=== PATIENT | male | born 1960 | race Two or more races ===

== ENCOUNTER → 2023-10-19 | Outpatient (CLI) | payer OTHER | END | disposition home or self-care (01) | LOC: LABPAT 15:06 | PROVIDERS: ATTEND Orthopaedic Surgery Orthopaedic Surgery of the Spine | DX: Z01.812 Encounter for preprocedural laboratory examination (principal); M48.061 Spinal stenosis, lumbar region without neurogenic claudication | CPT/HCPCS: 86850; 86900; 86901; 87070 ==

== ENCOUNTER 2023-10-20 05:56 | Inpatient (IN) | payer OTHER ==
[2023-10-14 10:58] VITALS: BMI 36.3
[2023-10-20] MEDS: LACTATED RINGERS 1,000 ML IV SCH (06:28)
[2023-10-20] MEDS: ONDANSETRON 4 MG/2 ML VIAL IVP ONE (06:54)
[2023-10-20] MEDS ORDERED: DEXMEDETOMIDINE/0.9% NACL(PMX) 400 MCG/100 ML IV ONE (07:28)
[2023-10-20] MEDS ORDERED: GLYCOPYRROLATE 0.2 MG/ML 2 ML VIAL ONE (07:28)
[2023-10-20] MEDS ORDERED: LIDOCAINE 1% INJ 10MG/ML (20 ML MDV) ONE (07:28)
[2023-10-20] MEDS ORDERED: PHENYLEPHRINE-0.9% NACL SYG 1,000 MCG/10 ML SYRINGE ONE (07:28)
[2023-10-20] MEDS ORDERED: NEOSTIGMINE 1 MG/ML 10 ML VIAL ONE (07:28)
[2023-10-20] MEDS ORDERED: ePHEDrine 50 MG/ML 1 ML VIAL ONE (07:28)
[2023-10-20] MEDS ORDERED: fentaNYL (PF) 50 MCG/ML 2 ML AMP ONE (07:28)
[2023-10-20] MEDS ORDERED: KETAMINE HCL IN 0.9 % NACL 50 MG/5 ML SYRINGE ONE (07:28)
[2023-10-20] MEDS ORDERED: PHENYLEPHRINE 10 MG/ML VIAL ONE (07:28)
[2023-10-20] MEDS ORDERED: ROCURONIUM 10 MG/ML (5 ML VIAL) IV ONE (07:28)
[2023-10-20] MEDS ORDERED: PROPOFOL 10 MG/ML 20 ML VIAL IV ONE (07:28)
[2023-10-20] MEDS ORDERED: VASOPRESSIN 20 UNIT/ML 1 ML VIAL ONE (07:28)
[2023-10-20] MEDS ORDERED: HYDROmorphone (PF) 1 MG/ML ONE (07:28)
[2023-10-20] MEDS ORDERED: MIDAZOLAM 2 MG/2 ML VIAL ONE (07:28)
[2023-10-20] MEDS: ceFAZolin 1,000 MG in SODIUM CHLORIDE 0.9% IRRIGATIO 1,000 ML IRRIGATION PRN ×2 (07:33→11:29)
[2023-10-20] MEDS: GELATIN SPONGE,ABSORB (LARGE) 1 EACH SPONGE TOPICAL ONE (07:33)
[2023-10-20] MEDS: THROMBIN (BOVINE) 5,000 UNIT VIAL TOPICAL ONE (07:33)
[2023-10-20] MEDS: LACTATED RINGERS 1,000 ML IV ONE ×3 (07:33→11:29)
[2023-10-20] MEDS: ceFAZolin 3 GM in SODIUM CHLORIDE 0.9% 100 ML IVPB PRN (07:33)
[2023-10-20] MEDS: BUPIVACAINE (PF) 0.5% 30 ML VIAL SQ ONE (08:15)
[2023-10-20] MEDS: LIDOCAINE 2%-EPI 1:100,000 20 ML VIAL SQ ONE (08:15)
[2023-10-20 10:05] LABS: Basophils % (A) 0 %; Eosinophils # (A) 0.1 k/uL (0-0.7); Eosinophils % (A) 1 %; HCT 39.2 % (39.0-53.0); HGB 13.8 gm/dL (13.0-17.5); Lymphocytes # (A) 2.4 k/uL (1.0-4.8); Lymphocytes % (A) 27 %; MCH 31.6 pg (25.0-35.0); MCHC 35.3 g/dL (31.0-37.0); MCV 89.6 fL (80.0-100.0); Mean Platelet Volume 7.9; Monocytes # (A) 0.4 k/uL (0-1.0); Monocytes % (A) 4 %; Neutrophils # (A) 5.7 k/uL (1.3-7.7); Neutrophils % (A) 65 %; Platelet Count 234 k/uL (150-450); RBC 4.38 m/uL (4.30-5.90); RDW 14.5 % (11.5-15.5); WBC 8.8 k/uL (3.8-10.6)
[2023-10-20 10:09] LABS: African American GFR (CKD) 77 (>60 ml/min/1.73 sqM); Anion Gap 9 mmol/L; Blood Urea Nitrogen 17 mg/dL (9-20); Calcium 9.2 mg/dL (8.4-10.2); Carbon Dioxide 22 mmol/L (22-30); Chloride 106 mmol/L (98-107); Glucose 177 mg/dL (74-99); Non-African American GFR(CKD) 67 (>60 ml/min/1.73 sqM); Potassium 3.8 mmol/L (3.5-5.1); Sodium 137 mmol/L (137-145)
[2023-10-20] MEDS ORDERED: HYDROmorphone 1 MG/ML 1 ML SYRINGE IVP PRN (13:20)
[2023-10-20] MEDS ORDERED: BENZOCAINE/MENTHOL LOZENG 1 EACH LOZENGE MUCOUS MEM PRN (13:20)
[2023-10-20] MEDS ORDERED: SENNOSIDES-DOCUSATE SODIUM 1 EACH TAB PO PRN (13:21)
[2023-10-20] MEDS ORDERED: ONDANSETRON 4 MG/2 ML VIAL IVP PRN (13:21)
[2023-10-20] MEDS ORDERED: MAGNESIUM HYDROXIDE 2,400 MG/30 ML CUP PO PRN (13:21)
--- NOTE | 2023-10-20 13:31 | FL ---
EXAMINATION TYPE: FL guidance operating room, XR lumbar spine 2 or 3V Intraoperative/procedural fluor oscopic services were provided. Total fluoroscopy time is 43 minutes with a total of 6 submitted imag es to PACS. Please see the operative/procedural note for further details. DAP: [id number]
--- NOTE | 2023-10-20 13:44 | P.OP ---
Date of Procedure: 10/20/23 Preoperative Diagnosis: Degenerative scoliosis, spinal stenosis L2-3, recurrent spinal stenosis L3-4 L4 5, lower extremity radiculopathy , degenerative disc disease, low back pain Disc herniation L 23 L3 4 L4 5 Postoperative Diagnosis: NameSame Anesthesia: GETA Pathology: none sent Condition: stable Disposition: PACU Description of Procedure: DESCRIPTION OF PROCEDURE(S): BRIEF OPERATIVE NOTE Preoperative Diagnosis: Degenerative scoliosis, spinal stenosis L2-3, recurrent spinal stenosis L3-4 L4 5, lower extremity radiculopathy , degenerative disc disease, low back pain Disc herniation L 23 L3 4 L4 5 Postoperative Diagnosis: Same Procedure: Laminectomy and decompression L2-3, revision laminectomy L3-4 L4-[address] navigation aided Minimally invasive Posterior lateral decompression and facet fusion L2-3 L3-4 L4-5 and L4 5 Minimally invasive Transforaminal lumbar interbody fusion for a 360 fusion L2-3 and L3 4 L4 5 Discectomy for decompression L2 3 L3 4 L4 5 Placement of interbody graft L2-3 L3-4 L4-5 Use of computer navigation for fusion and placement of pedicle screws at L2-L3-L4 and L5 bilaterally Local autogenous bone grafting Aspiration of bone marrow from the vertebral body pedicle Use of bone graft extenders Surgeon: Dr. Kim Insulation Professional: Molina GUNN who is present throughout the entire the case persistence during positioning, dissection, exposure, visualization, and all crucial elements of the case as well as closure. Anesthesia: General anesthesia per Dr Fuller Estimated blood loss: Approximately 600 mL Complications: None apparent Components implanted: K2M minimally invasive [place] pedicle screw system withscrews measuring 5.5 and 6.5 mm in diameter to rods one [place] interbody cage and and 2 expandable interbody cages with 10 mL of osteo amp bio4 bone graft substitute and 30 mL of the BX bone fibers to supplement the local autogenous bone graft and bone marrow aspirate Disposition: To recovery room in good stable condition. OPERATIVE INDICATIONS The patient has had severe issues at their lower extremity in her lower back over the past several years with significant worsening over the past several months. Over the past few months the patient had pain at their back and their lower extremities. The patient is having severe radicular symptoms at their lower extremity with weakness. The patient is having significant pain in their back. They are unable to obtain any comfort. many years ago patient had prior laminectomy decompression at L3 4 and L4 5. He did well prior laminectomy and decompression at L3-4 and L4-5. He did well m with that but has been developing worsening symptoms over the past year which has been quite severe over the past several months. His imaging showed evidence of His imaging showed evidence of recurrent stenosis at L3 4 and L4 5 and new severe stenosis at L2-3 with disc herniation bilateral foraminal stenosis. He'll show set evidence of degenerative scoliosis with disc degeneration. These correlated well with his low back and lower extremity symptoms. patient had we did aggressive conservative treatment with medications therapy and interventional pain management however thery were not having any relief. The patient also showed evidence of a listhesis with some dynamic instability. The patient has been through conservative treatment. We discussed various treatment options including surgery, and the patient wishes to proceed with surgery We discussed the risk, patient's alternatives and benefits of surgery including but not limited to, risk of bleeding risk of infection, risk of need for further surgery, risk of decreased, loss of motion, muscle function, malunion nonunion, hardware failure, nerve damage, paralysis, heart attack, blindness and . They understood issues with the current pandemic and the possibility of exposure. OPERATIVE SUMMARY After discussing all the risks, patient alternatives and benefits at length, the patient elected to proceed with surgical intervention, signed informed consent, and presented for their procedure. The patient was seen and examined in the preoperative holding area and the surgical site was marked. The patient was given antibiotics and brought to the operating room. The patient was sedated and intubated by anesthesia in standard fashion. The patient was positioned on to the operating room table in a prone position on the appropriate frame which was well-padded and well molded. We were careful to pad any bony prominences and pressure points. We were careful to maintain the patient's cervical spine and good neutral alignment and position throughout. The patient was prepped and draped in a normal standard fashion. An appropriate timeout and keystone protocol performed. We were able to proceed with the surgery. The local wound area was infiltrated with local anesthetic. Over the right iliac crest I was able to make small stab incisions and establish a guidepin screw fixation to the iliac crest 2. I was able place the computer referencing device over the guidepins to establish an appropriate reference point for the Ziem CT navigation. We then were able to place patient in an appropriate drape and do a navigation spin for visualization and 3-D reconstruction of the lumbar spine. I was able utilize C-arm guidance and navigation to establish appropriate position over the pedicles bilaterally at the appropriate levels at L2 L3 L4 and L5. With the appropriate levels confirmed was able to make small incisions over the appropriate pedicle sites bilaterally. Utilizing the computer navigation device I was able to establish bony landmarks at the right iliac crest for a bony reference point for the navigation device. I was able to establish a [place]sh[place] needle over the lateral a spect of the pedicle and advanced the trocar into the pedicle being careful not to breech superiorly inferiorly medially or laterally using computer navigation device. Position was confirmed regularly with AP and lateral images on C-arm and with the computer navigation device at the appropriate levels bilaterally. I was able to establish the trocar into the pedicle appropriately into the posterior aspect of the vertebral body bilaterally at the appropriate levels. This was done at each of the pedicle positions and each of the vertebrae. At the superior vertebrae of L2 on the right I was able to take approximately 15 mL of bone aspiration for use later in the case to supplement the allograft and autograft bone. I was able place the guidewire into the trocar and into the vertebral body appropriately under C-arm guidance. Dissection was taken down over the wire to the appropriate starting position for the screw placed. The appropriate length screw was chosen, threaded over the guidewire and screwed appropriately into the pedicle and vertebral body under C-arm guidance in excellent alignment and position with good bony purchase. This is done at each of the screw sites at the appropriate levels at L2 L3 L4 and L5 bilaterally .. With the screws intact I extended the incision to connect the screw hole sites on the most symptomatic sidethe left I dissected down to establish access over the pars and lamina to the base of the spinous process. I was able to expose the facet joint. The capsule the facet was taken down and showed some facet arthrosis at the joint. I was able to use a combination of curettes and [place] rongeurs and a high-speed drill to take down the facet joint and do a facetectomy. I was able get excellent foraminal decompression and central dec ompression with undermining across midline to perform a laminectomy centrally and contralaterally. at L2 we did a primary laminectomy and decompression with facetectomy. At L3 4 and L4 5 we did revision laminectomy dec laminectomy decompression. . I was as able get good central decompression. The ligamentum flavum was taken down to further decompress centrally and at bilateral neural foramen. I was able to expose the disc space and visualize the traversing nerve root. Note was made of some disc protrusion and disc herniation that was abutting the traversing nerve root at the level causing further compression of the nerve root. I was able to establish a annulotomy at the appropriate level protecting soft tissue and neural structures. Note was made of some disc desiccation at the disc. I performed a complete discectomy with accommodation of curettes and rasps and scrapers. I was able get good endplate preparation at the disc space. I sized for the appropriate size interbody spacer protecting the soft tissue and neural structures. The wound was copiously irrigated and suctioned dry. There is no evidence of any dural tear or leak. I was able to pack the disc space with local autogenous bone graft as well as a small amount of bone graft which was also placed into the interbody cage itself. Protecting the soft tissue structures and neural structures I was able place t he interbody cage in good alignment and good position with good fit and fill at the interbody space. Position was confirmed with C-arm guidance. Good hemostasis maintained. There is no evidence of any dural tear or leak. The wound was irrigated and suctioned dry. this was done first at L2 3 and then at L3 4 and L4 5 With the hardware intact, intraoperative C-arm imaging was again taken which showed good alignment and position of the hardware at the appropriate levels and L2 to L5 . We were then able to measure, contour and place the rods and appropriate hardware bilaterally. I was able to place capcrews, tighten them down, and torque them with the torque screwdriver appropriately. With this intact I was able to place the local autogenous bone graft with additional bone graft enhancer as necessary into the posterior lateral gutters over the decorticated transverse processes and facet joints on the contralateral side. The remainder of the bone graft was placed over the facet joint on the contralateral side after taking down the facet joint capsule. With the bone graft intact, a stable construct, and good decompression at the appropriate levels, we were able to proceed with closure. Good hemostasis was maintained. There is no evidence of dural tear or leak. The fascia was closed for a watertight closure. he subcuticular tissue was closed with absorbable suture. The wound was cleaned and dried and dressed with the appropriate dressing. The drapes were broken down. The patient was gently rolled back onto their hospital bed being careful to maintain their cervical spine and good neutral alignment and position. They were woken up by anesthesia, extubated, and brought to the recovery room in good stable condition. The patient will be admitted to the hospital for appropriate postoperative care, medical management and monitoring. We will continue to follow them closely about the postoperative course.
[2023-10-20] MEDS: ALBUMIN HUMAN 5% 500 ML in EMPTY BAG 1 BAG IVPB ONE (14:15)
[2023-10-20 14:34] LABS: Basophils % (A) 0 %; Eosinophils # (A) 0.1 k/uL (0-0.7); Eosinophils % (A) 1 %; HCT 35.3 % (39.0-53.0); HGB 12.6 gm/dL (13.0-17.5); Lymphocytes # (A) 2.3 k/uL (1.0-4.8); Lymphocytes % (A) 22 %; MCH 32.3 pg (25.0-35.0); MCHC 35.7 g/dL (31.0-37.0); MCV 90.7 fL (80.0-100.0); Mean Platelet Volume 7.5; Monocytes # (A) 0.4 k/uL (0-1.0); Monocytes % (A) 4 %; Neutrophils # (A) 7.4 k/uL (1.3-7.7); Neutrophils % (A) 71 %; Platelet Count 162 k/uL (150-450); RBC 3.89 m/uL (4.30-5.90); RDW 14.1 % (11.5-15.5); WBC 10.4 k/uL (3.8-10.6)
[2023-10-20] MEDS: HYDROmorphone 0.5 MG/0.5 ML SYRINGE IVP PRN ×2 (15:14→20:17)
[2023-10-20] MEDS: HYDROcodone/APAP 5-325MG 1 EACH TAB PO PRN (16:21)
[2023-10-20] MEDS: SODIUM CHLORIDE 0.9% 1,000 ML IV SCH (16:21)
[2023-10-20] MEDS: diazePAM 5 MG TAB PO PRN (17:20)
[2023-10-20] MEDS: DEXAMETHASONE SOD PHOSPHATE 4 MG/ML 1 ML VIAL IV ONE (17:50)
[2023-10-20] MEDS: PHENYLEPHRINE 40 MG in SODIUM CHLORIDE 0.9% 250 ML IV ONE (17:51)
[2023-10-20] MEDS: ACETAMINOPHEN TAB 500 MG TAB PO PRN (21:34)
[2023-10-20] MEDS: METOPROLOL TARTRATE 50 MG TAB PO SCH (22:11)
[2023-10-20] MEDS: NON FORMULARY DRUG (Icosapent Ethyl [Icosapent Ethyl] 1 GM Capsule) PO SCH (22:11)
[2023-10-21] MEDS: diphenhydrAMINE 50 MG CAP PO PRN (00:41)
[2023-10-21] MEDS: CYCLOBENZAPRINE 10 MG TAB PO PRN (04:35)
[2023-10-21] MEDS: EZETIMIBE 10 MG TAB PO SCH (07:55)
[2023-10-21] MEDS: SENNOSIDES-DOCUSATE SODIUM 1 EACH TAB PO SCH (07:56)
[2023-10-21] MEDS: VALSARTAN 160 MG TAB PO SCH (07:56)
--- NOTE | 2023-10-21 09:27 | P.PN ---
Progress Note - Text Progress Note Date: 10/21/23 Postoperative day #1 Patient is seen and examined today at bedside. The patient has some pain around the surgical site as expected. Pain is being controlled with medication. He has not yet been out of bed. His Durán has been discontinued but has not yet voided. He only tolerated very small bites of his diet. Denies any nausea or vomiting. Denies any new complaints. Physical Exam He had a maximum temperature of 102 but it is now at 99 with stable vital signs Abdomen is soft nontender. Chest has good excursion deep and space expiration The incision site is clean dry and intact. No erythema there is no purulence. There is no active drainage Extremities have not had neurologic change from prior to surgery. Dorsiflexion plantarflexion EHL intact Calves and thighs were soft nontender without evidence of DVT. Assessment/Plan Postoperative day 1 status post Cassandra invasive decompression and fusion L2-3 L3-4 L4-5 for his severe spinal stenosis with degenerative scoliosis lower extreme radiculopathy Patient is progressing as expected from the surgery. We will try to get him up out of bed today to get onto his feet. We will continue to increase the patient's mobilization with therapy. Hopefully he will be able to void on his own, if he is having difficulty voiding he may need to replace his catheter. That will be determined later today after at least 6 hours He has some history of fevers postoperatively. Last night he got up to 101 but it again normalized this morning he got up to 102 but it seems to be normalizing. He is not having any sweats or shivers at this point. I think we need to encourage him to continue to use his incentive spirometer for deep breathing to try to prevent fever from atelectasis. He does not appear to have any sort of infectious process. We will continue pain control with oral or IV medications. We'll continue to follow patient closely.
[2023-10-21] MEDS: SODIUM CHLORIDE 0.9% 500 ML 500 ML IV ONE (10:57)
[2023-10-21 11:07] LABS: Basophils # (A) 0.01 X 10*3/uL (0.00-0.10); Basophils % (A) 0.1 %; Eosinophils # (A) 0.02 X 10*3/uL (0.04-0.35); Eosinophils % (A) 0.2 %; HCT 33.4 % (39.6-50.0); Lymphocytes % (A) 18.3 %; MCH 29.9 pg (27.0-32.0); MCHC 32.9 g/dL (32.0-37.0); MCV 90.8 FL (80.0-97.0); Mean Platelet Volume 10.1 FL (9.5-12.2); Monocytes # (A) 0.91 X 10*3/uL (0.20-1.00); Monocytes % (A) 9.2 %; NRBC Per 100 WBC 0 X 10*3/uL (0.00-0.01); Neutrophils # (A) 7.08 X 10*3/uL (1.80-7.70); Platelet Count 125 X 10*3/uL (140-440); RBC 3.68 X 10*6/uL (4.40-5.60); RDW 14.4 % (11.5-14.5); WBC 9.84 X 10*3/uL (4.50-10.00)
[2023-10-21 11:41] LABS: BUN/Creat Ratio 10.15 Ratio (12.00-20.00); Blood Urea Nitrogen 13.2 mg/dL (9.0-27.0); Calcium 8.7 mg/dL (8.7-10.3); Carbon Dioxide 24.9 mmol/L (21.6-31.8); Chloride 101 mmol/L (96-109); Glucose 124 mg/dL (70-110); Potassium 3.7 mmol/L (3.5-5.5); Sodium 138 mmol/L (135-145)
--- NOTE | 2023-10-21 13:06 | P.CONS ---
History of Present Illness - Reason for Consult Consult date: 10/21/23 Medical management - History of Present Illness History of present illness; patient is 63-year-old gentleman from the hospital for elective spine surgery by orthopedic spine. Patient was being seen outp atient by orthopedic spine for chronic back pain has been going on for last few years, it involves the lumbar area of spine. Patient has been complaining of increasing pain and numbness of feet patient had tried lumbar bracing and all conservative measures has so far failed. Orthopedic spine discussed with patient and he was scheduled for open posterior lumbar decompression and fusion with transforaminal lumbar interbody fusion at L2-L3, L3-L4, L4/L5. Patient underwent the procedure on 10/20. Postoperatively internal medicine team was consulted for medical management. Postoperative course was complicated by episodes of low-grade fevers. There was no complain of chest pain or shortness of breath. Patient complaining of urinary retention. REVIEW OF SYSTEMS: CONSTITUTIONAL: As mentioned in HPI HEENT: No recent visual problems or hearing problems. Denied any sore throat. CARDIOVASCULAR: No chest pain, orthopnea, PND, no palpitations, no syncope. PULMONARY: No shortness of breath, no cough, no hemoptysis. GASTROINTESTINAL: No diarrhea, no nausea, no vomiting, no abdominal pain. NEUROLOGICAL: No headaches, no weakness, no numbness. HEMATOLOGICAL: Denies any bleeding or petechiae. GENITOURINARY: As mentioned in HPI MUSCULOSKELETAL/RHEUMATOLOGICAL: Denies any joint pain, swelling, or any muscle pain. ENDOCRINE: Denies any polyuria or polydipsia. The rest of the 14-point review of systems is negative. PHYSICAL EXAMINATION: GENERAL: The patient is alert and oriented x3, not in any acute distress. Well developed, well nourished. HEENT: Pupils are round and equally reacting to light. EOMI. No scleral icterus. No conjunctival pallor. Normocephalic, atraumatic. No pharyngeal erythema. No thyromegaly. CARDIOVASCULAR: S1 and S2 present. No murmurs, rubs, or gallops. PULMONARY: Chest is clear to auscultation, no wheezing or crackles. ABDOMEN: Soft, nontender, nondistended, normoactive bowel sounds. No palpable organomegaly. MUSCULOSKELETAL: No joint swelling or deformity. EXTREMITIES: No cyanosis, clubbing, or pedal edema. NEUROLOGICAL: Gross neurological examination did not reveal any focal deficits. SKIN: No rashes. Assessment and plan status post decompression and fusion L2-3 L3-4 L4-5 for his severe spinal stenosis with degenerative scoliosis lower extreme radiculopathy Postoperative fevers Urinary retention Hyperlipidemia Hypertension Monitor vital signs Monitor CBC Monitor CMP Continue telemetry monitoring Encourage use of I-S Continue antipyretics Continue pain management per orthopedics Continue DVT prophylaxis per orthopedics Resume home meds PT and OT consulted Labs and medication were reviewed.. Continue same treatment. Continue with symptomatic treatment. Resume home medication. Monitor labs and vitals. DVT and GI prophylaxis. Further recommendations as per clinical course of the patient Dictation was produced using [employer] dictation software. please excuse any grammatical, word or spelling errors. Past Medical History Past Medical History: Coronary Artery Disease (CAD), Hyperlipidemia, Hyper tension Additional Past Medical History / Comment(s): KIDNEY STONE, SCOLIOSIS/SPINAL STENOSIS/DDD, FAMILIAL HYPERTRIGLYCERIDEMIA History of Any Multi-Drug Resistant Organisms: None Reported Past Surgical History: Appendectomy, Back Surgery, Orthopedic Surgery, Tonsillectomy Additional Past Surgical History / Comment(s): LEFT BICEP REPAIR, LEFT ROTATOR CUFF REPAIR, RIGHT ACL REPAIR, BACK SURGERY IN 2013, CARPAL TUNNEL RELEASE Additional Past Anesthesia/Blood Transfusion Reaction / Comm: PT HAS HAD MULTIPLE SURGERIES WITH NO ISSUES, BUT AFTER HIS 2013 BACK SURGERY IN [place] HE ENDED UP WITH A HIGH FEVER OF 104.5 10 HOURS AFTER SURGERY AND WAS FEBRILE FOR 48 HRS AFTER SURGERY AND REMAINED IN THE HOSPITAL AT THAT TIME WITH NO EXPLANATION. PT WAS IN A REGULAR HOSPITAL UNIT AND ICU WAS NOT NEEDED, THEY JUST MONITORED PT FOR INFECTION AND FEVER REDUCTION. PT WAS TOLD THERE WAS NO INFECTION OR ISSUES AND WAS NEVER TOLD IT WAS FROM ANESTHESIA AND PER HIS THEY NEVER MENTIONED MALIGNANT HYPERTHERMIA. PT HAS SINCE HAD A ROTATOR CUFF SURGERY WITH NO ISSUES. 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* Past Psychological History: No Psychological Hx Reported Smoking Status: Never smoker Past Alcohol Use History: None Reported Additional Past Alcohol Use History / Comment(s): CHEWS TOBACCO Past Drug Use History: None Reported - Past Family History Brother(s) Family Medical History: Diabetes Mellitus, Renal Disease, Thyroid Disorder Mother Family Medical History: Cancer, Hypertension Medications and Allergies Home Medications Medication Instructions Recorded Confirmed Type Celecoxib [CeleBREX] 100 mg PO BID PRN 10/14/23 10/20/23 History Ezetimibe [Zetia] 10 mg PO DAILY 10/14/23 10/20/23 History Metoprolol Tartrate [Lopressor] 50 mg PO BID 10/14/23 10/20/23 History Valsartan 320 mg PO DAILY 10/14/23 10/20/23 History icosapent ethyL [Icosapent Ethyl] 1 gm PO BID 10/14/23 10/20/23 History traMADol HCL 50 mg PO DIRECTED PRN 10/14/23 10/20/23 History Allergies Allergy/AdvReac Type Severity Reaction Status Date / Time evolocumab Allergy SEVERELY Verified 10/20/23 06:23 [From Melvin Arango] ELEVATED BP X2 IN 200'S/100'S Physical Exam Vitals: Vital Signs Temp Pulse Resp BP BP BP Pulse Ox 10/21/23 05:55 72 18 130/65 96 10/21/23 04:05 98.5 F 10/21/23 01:00 99.6 F 10/20/23 23:30 100.9 F H 98 18 109/57 94 L 10/20/23 21:34 100.9 F H 10/20/23 20:13 101.1 F H 76 18 118/53 10/20/23 16:51 72 107/55 98 10/20/23 15:45 57 L 16 114/65 100 10/20/23 15:30 57 L 16 103/58 99 10/20/23 15:21 97.9 F 85 122/67 99 10/20/23 15:20 55 L 16 101/53 99 10/20/23 15:15 53 L 16 109/58 98 10/20/23 15:00 52 L 16 104/54 97 10/20/23 14:45 55 L 16 103/56 94 L 10/20/23 14:40 53 L 16 106/69 98 10/20/23 14:30 56 L 16 99/50 95 10/20/23 14:15 59 L 16 88/52 95 10/20/23 14:00 55 L 16 82/49 95 10/20/23 13:45 58 L 16 87/50 96 10/20/23 13:30 63 16 88/52 97 10/20/23 13:22 96.7 F L 57 L 14 74/47 124/56 95 Intake and Output 10/20/23 10/21/23 10/21/23 22:59 06:59 14:59 Intake Total 275 120 Output Total 250 900 600 Balance 32 -900 480 Intake: Intake, IV Titration 275 Amount Sodium Chloride 0.9% 1, 225 000 ml @ 75 mls/hr IV . [id number] BERNIE Rx#:[id number] ceFAZolin 2 gm In Sodium 50 Chloride 0.9% 50 ml @ 100 mls/hr IVPB Q8HR [facility] Rx# :[id number] Oral 120 Output: Urine 250 900 600 Other: Voiding Method Indwelling Catheter Weight 127.8 kg Results CBC & Chem 7: 10/21/23 06:08 10/20/23 09:45 Labs: Abnormal Lab Results - Last 24 Hours (Table) 10/20/23 10/21/23 Range/Units 14:29 06:08 RBC 3.89 L 3.68 L (4.30-5.90) m/uL Hgb 12.6 L 11.0 L (13.0-17.5) gm/dL Hct 35.3 L 33.4 L (39.0-53.0) % Plt Count 125 L (140-440) X 10*3/uL Eosinophils # 0.02 L (0.04-0.35) X 10*3/uL
[2023-10-22] MEDS: traMADol 50 MG TAB PO PRN (03:36)
[2023-10-22 08:43] LABS: Basophils # (A) 0.02 X 10*3/uL (0.00-0.10); Basophils % (A) 0.2 %; Eosinophils # (A) 0.02 X 10*3/uL (0.04-0.35); Eosinophils % (A) 0.2 %; HCT 32.8 % (39.6-50.0); HGB 10.6 g/dL (13.0-17.0); Lymphocytes # (A) 1.82 X 10*3/uL (0.90-5.00); Lymphocytes % (A) 16.4 %; MCH 30.5 pg (27.0-32.0); MCHC 32.3 g/dL (32.0-37.0); MCV 94.3 FL (80.0-97.0); Mean Platelet Volume 10.2 FL (9.5-12.2); Monocytes # (A) 1.24 X 10*3/uL (0.20-1.00); Monocytes % (A) 11.2 %; NRBC Per 100 WBC 0 X 10*3/uL (0.00-0.01); Neutrophils # (A) 7.92 X 10*3/uL (1.80-7.70); Neutrophils % (A) 71.5 %; Platelet Count 109 X 10*3/uL (140-440); RBC 3.48 X 10*6/uL (4.40-5.60); RDW 14.4 % (11.5-14.5); WBC 11.07 X 10*3/uL (4.50-10.00)
--- NOTE | 2023-10-22 08:49 | P.PN ---
Progress Note - Text Progress Note Date: 10/22/23 Orthopedic Spine History of present illness: Patient is a pleasant 63-year-old male who is seen and examined at the bedside following posterior lateral decompression and fusion performed Wednesday. Patient states they are doing ok post-operatively. Currently does not complain of nausea, vomiting, fever, or chills. Patient states pain has been adequately controlled. Patient is eating and voiding freely without difficulty. He has had difficulty with mobilization. He is planning to work with physical therapy today. He is still planning for discharge home in the next 1 to 2 days depending on his increased mobility. We did discuss he will be provided with a walker at the time of discharge to aid in ambulation. He continues to be seen by medicine for his other medical diagnoses. He does continue to have slight postoperative fever. His temperature has remained consistent at 100 F with 1 reading at 100.6 F. Physical Exam Lumbar Fusion: Status post surgical day number 2 Patient is awake, alert, and oriented 3 Vital signs stable Good chest excursion with deep inspiration and expiration Abdomen soft nontender Dorsiflexion, plantarflexion, and extensor hallucis longus positive sustained bilaterally No signs or symptoms of DVT; no calf pain; pneumatic cuffs not currently intact bilateral lower extremities Optifoam dressings are clean, dry, and intact over the lumbar spine and right iliac crest; no erythema, purulence, or signs of infection Neurovascularly intact bilaterally lower extremities Assessment: Status post minimally invasive L2-3, L3-4, and L4-5 posterior lateral decompression and fusion with transforaminal lumbar interbody fusion Low back pain Degenerative scoliosis L2-3 spinal stenosis L3-4 and L4-5 recurrent spinal stenosis Lower extremity radiculopathy Lumbar degenerative disc disease L2-3, L3-4, and L4-5 herniated nucleus pulposus Postoperative fever Hyperlipidemia Hypertension Plan: 1. Ambulate as tolerated; work with Physical Therapy to increase mobilization 2. Continue pain control with IV and oral medications; will plan to begin weaning the patient off of IV narcotic medication in anticipation for discharge home in the next 1-2 days Scription's have been sent to the [facility] pharmacy located within [facility] for hydrocodone 5 mg / 325 mg, cyclobenzaprine 10 mg, tramadol 50 mg, and Senokot-S. Patient's will plan to pick these medications up today as pharmacy will be closed over the weekend. 3. Dressings to remain intact with Optifoam; patient may shower with dressings intact 4. Prescription has been written, signed, and provided to case management to obtain 2 wheeled walker which the patient may utilize to stable helper in ambulation at the time of discharge 5. Medical management can continue to manage patient for patient's other medical diagnoses 6. We will continue to follow the patient closely; depending on the patient's progress, we may plan for discharge home as early as tomorrow, 10/23/2023, or 10/24/2023. 7. Patient can follow-up with Molina Pereyra PA-C or Dr. Kurtis Kim at [facility] in 1-2 weeks following discharge
--- NOTE | 2023-10-22 10:54 | XR ---
EXAMINATION TYPE: XR chest 2V DATE OF EXAM: 10/22/2023 10:26 AM CLINICAL INDICATION:Male, 63 years old with history of Fever; COMPARISON: None TECHNIQUE: XR chest 2V Frontal and lateral views of the chest. FINDINGS: Lungs/Pleura: There is no evidence of pleural effusion, focal consolidation, or pneumothorax. Pulmonary vascularity: Unremarkable. Heart/mediastinum: Cardiomediastinal silhouette is unremarkable. Musculoskeletal: No acute osseous pathology. IMPRESSION: No acute cardiopulmonary disease/process.
--- NOTE | 2023-10-22 13:35 | P.PN ---
Subjective Progress Note Date: 10/22/23 patient is 63-year-old gentleman from the hospital for elective spine surgery by orthopedic spine. Patient was being seen outpatient by orthopedic spine for chronic back pain has been going on for last few years, it involves the lumbar area of spine. Patient has been complaining of increasing pain and numbness of feet patient had tried lumbar bracing and all conservative measures has so far failed. Orthopedic spine discussed with patient and he was scheduled for open posterior lumbar decompression and fusion with transforaminal lumbar interbody fusion at L2-L3, L3-L4, L4/L5. Patient underwent the procedure on 10/20. Postoperatively internal medicine team was consulted for medical management. Postoperative course was complicated by episodes of low-grade fevers. There was no complain of chest pain or shortness of breath. Patient complaining of urinary retention. 10/22. Patient seen and examined. Still having low-grade fevers. Will order chest x-ray and UA. Denies any back pain. REVIEW OF SYSTEMS: CONSTITUTIONAL: As mentioned above CARDIOVASCULAR: No chest pain, no palpitations, no syncope. PULMONARY: No shortness of breath, no cough, GASTROINTESTINAL: No diarrhea, no nausea, no vomiting, no abdominal pain. NEUROLOGICAL: No headaches, no weakness, PHYSICAL EXAMINATION: GENERAL: The patient is alert and oriented x3, not in any acute distress. Well developed, well nourished. HEENT: Pupils are round and equally reacting to light. EOMI. No scleral icterus. No conjunctival pallor. Normocephalic, atraumatic. No pharyngeal erythema. No thyromegaly. CARDIOVASCULAR: S1 and S2 present. No murmurs, rubs, or gallops. PULMONARY: Chest is clear to auscultation, no wheezing or crackles. ABDOMEN: Soft, nontender, nondistended, normoactive bowel sounds. No palpable organomegaly. MUSCULOSKELETAL: No joint swelling or deformity. EXTREMITIES: No cyanosis, clubbing, or pedal edema. NEUROLOGICAL: Gross neurological examination did not reveal any focal deficits. SKIN: Lumbar area surgical incision seen Assessment and plan status post decompression and fusion L2-3 L3-4 L4-5 for his severe spinal stenosis with degenerative scoliosis lower extreme radiculopathy Postoperative fevers Urinary retention Hyperlipidemia Hypertension Monitor vital signs Monitor CBC Monitor CMP Continue telemetry monitoring Encourage use of I-S Continue antipyretics Ordered UA and chest x-ray Continue pain management per orthopedics Continue DVT prophylaxis per orthopedics PT and OT consulted Labs and medication were reviewed.. Continue same treatment. Continue with symptomatic treatment. Resume home medication. Monitor labs and vitals. DVT and GI prophylaxis. Further recommendations as per clinical course of the patient Dictation was produced using [employer] dictation software. please excuse any grammatical, word or spelling errors. Objective - Vital Signs Vital signs: Vital Signs Temp 100 F H 10/22/23 06:49 Pulse 77 10/22/23 06:49 Resp 20 10/22/23 06:49 BP 105/49 10/22/23 06:49 Pulse Ox 95 10/22/23 06:49 FiO2 Intake & Output 10/21/23 10/22/23 10/22/23 18:59 06:59 18:59 Intake Total 2120 480 Output Total 1250 700 Balance 870 -220 Intake: Intake, IV Titration 2000 Amount Sodium Chloride 0.9% 1, 1500 000 ml @ 125 mls/hr IV . [facility] Rx#:[id number] Sodium Chloride 0.9% 500 500 ml 500 ml @ 999 mls/hr IV .Q31M [facility] Rx#:[id number] Oral 120 480 Output: Urine 1250 700 - Labs CBC & Chem 7: 10/22/23 05:43 10/21/23 06:08 Labs: Abnormal Lab Results - Last 24 Hours (Table) 10/21/23 10/21/23 10/22/23 Range/Units 06:08 06:08 05:43 WBC 11.07 H (4.50-10.00) X 10*3/uL RBC 3.68 L 3.48 L (4.40-5.60) X 10*6/uL Hgb 11.0 L 10.6 L (13.0-17.0) g/dL Hct 33.4 L 32.8 L (39.6-50.0) % Plt Count 125 L 109 L (140-440) X 10*3/uL Immature Gran # 0.05 H (0.00-0.04) X 10*3/uL Neutrophils # 7.92 H (1.80-7.70) X 10*3/uL Monocytes # 1.24 H (0.20-1.00) X 10*3/uL Eosinophils # 0.02 L 0.02 L (0.04-0.35) X 10*3/uL Anion Gap 12.10 H (4.00-12.00) mmol/L BUN/Creatinine Ratio 10.15 L (12.00-20.00) Ratio Glucose 124 H (70-110) mg/dL
[2023-10-23 02:52] LABS: Appearance,Urine Clear (Clear); Bilirubin,Urine Negative (Negative); Blood,Urine Small (Negative); Color,Urine Yellow; Glucose,Urine (UA) Negative (Negative); Ketones,Urine 1+ (Negative); Leukocyte Esterase,Urine Negative (Negative); Mucus,Urine Rare /hpf; Nitrite,Urine Negative (Negative); Protein,Urine 1+ (Negative); RBC,Urine <1 /hpf (0-5); Specific Gravity,Urine 1.023 (1.001-1.035); Urobilinogen,Urine <2.0 mg/dL (<2.0); WBC,Urine 1 /hpf (0-5)
[2023-10-23] MEDS: bisacodyL 5 MG TABLET.DR PO PRN (11:58)
[2023-10-23] MEDS: oxyCODONE-APAP 5-325MG 1 EACH TAB PO PRN (11:58)
--- NOTE | 2023-10-23 12:50 | P.PN ---
Subjective Progress Note Date: 10/23/23 patient is 63-year-old gentleman from the hospital for elective spine surgery by orthopedic spine. Patient was being seen outpatient by orthopedic spine for chronic back pain has been going on for last few years, it involves the lumbar area of spine. Patient has been complaining of increasing pain and numbness of feet patient had tried lumbar bracing and all conservative measures has so far failed. Orthopedic spine discussed with patient and he was scheduled for open posterior lumbar decompression and fusion with transforaminal lumbar interbody fusion at L2-L3, L3-L4, L4/L5. Patient underwent the procedure on 10/20. Postoperatively internal medicine team was consulted for medical management. Postoperative course was complicated by episodes of low-grade fevers. There was no complain of chest pain or shortness of breath. Patient complaining of urinary retention. 10/22. Patient seen and examined. Still having low-grade fevers. Will order chest x-ray and UA. Denies any back pain. 10/23. Patient seen and examined. Patient did spike 1 episode of fever overnight 100.9. Denies any cough. Denies any shortness of breath. Patient is using I-S. States back pain is poorly controlled with [place] REVIEW OF SYSTEMS: CONSTITUTIONAL: As mentioned above CARDIOVASCULAR: No chest pain, no palpitations, no syncope. PULMONARY: No shortness of breath, no cough, GASTROINTESTINAL: No diarrhea, no nausea, no vomiting, no abdominal pain. NEUROLOGICAL: No headaches, no weakness, PHYSICAL EXAMINATION: GENERAL: The patient is alert and oriented x3, not in any acute distress. Well developed, well nourished. HEENT: Pupils are round and equally reacting to light. EOMI. No scleral icterus. No conjunctival pallor. Normocephalic, atraumatic. No pharyngeal erythema. No thyromegaly. CARDIOVASCULAR: S1 and S2 present. No murmurs, rubs, or gallops. PULMONARY: Chest is clear to auscultation, no wheezing or crackles. ABDOMEN: Soft, nontender, nondistended, normoactive bowel sounds. No palpable organomegaly. MUSCULOSKELETAL: No joint swelling or deformity. EXTREMITIES: No cyanosis, clubbing, or pedal edema. NEUROLOGICAL: Gross neurological examination did not reveal any focal deficits. SKIN: Lumbar area surgical incision seen Assessment and plan status post decompression and fusion L2-3 L3-4 L4-5 for his severe spinal stenosis with degenerative scoliosis lower extreme radiculopathy Postoperative fevers Urinary retention Hyperlipidemia Hypertension Monitor vital signs Monitor CBC Monitor CMP Continue telemetry monitoring Encourage use of I-S Continue antipyretics UA negative for infection and chest x-ray negative for pneumonia Check procalcitonin Continue pain management per orthopedics Continue DVT prophylaxis per orthopedics PT and OT following Labs and medication were reviewed.. Continue same treatment. Continue with symptomatic treatment. Resume home medication. Monitor labs and vitals. DVT and GI prophylaxis. Further recommendations as per clinical course of the dougie garcia Dictation was produced using [employer] dictation software. please excuse any grammatical, word or spelling errors. Objective - Vital Signs Vital signs: Vital Signs Temp 98.5 F 10/23/23 06:41 Pulse 65 10/23/23 06:41 Resp 17 10/23/23 06:41 BP 102/55 10/23/23 06:41 Pulse Ox 98 10/23/23 06:41 FiO2 Intake & Output 10/22/23 10/23/23 10/23/23 18:59 06:59 18:59 Intake Total 500 600 Output Total 100 Balance -100 500 600 Intake: Intake, IV Titration 600 Amount Sodium Chloride 0.9% 1, 600 000 ml @ 125 mls/hr IV . Q8H [facility] Rx#:[id number] Oral 500 Output: Urine 100 Other: Voiding Method Toilet Urinal # Voids 3 - Labs CBC & Chem 7: 10/22/23 05:43 10/21/23 06:08 Labs: Abnormal Lab Results - Last 24 Hours (Table) 10/23/23 Range/Units 02:20 Urine Protein 1+ H (Negative) Urine Ketones 1+ H (Negative) Urine Blood Small H (Negative) Urine Mucus Rare H (None) /hpf
--- NOTE | 2023-10-24 10:26 | P.PN ---
Subjective Progress Note Date: 10/23/23 Principal diagnosis: S/P L2-L5 decompression and Fusion Patient is a pleasant 63-year-old male who is seen and examined at the bedside following posterior lateral decompression and fusion performed Wednesday, POD#3. Patient states he is doing ok post-operatively. Currently does not complain of nausea, vomiting, fever, or chills. Patient states pain has been adequately controlled. Patient is eating and voiding freely without difficulty. He denies new numbness, tingling, weakness, calf pain or other. He has had difficulty with mobilization. He is planning to work more with physical therapy today. He is still planning for discharge home in the next 1 to 2 days depending on his increased mobility. Objective - Vital Signs Vital signs: Vital Signs Temp 98.5 F 10/23/23 06:41 Pulse 65 10/23/23 06:41 Resp 17 10/23/23 06:41 BP 102/55 10/23/23 06:41 Pulse Ox 98 10/23/23 06:41 FiO2 Intake & Output 10/22/23 10/23/23 10/23/23 18:59 06:59 18:59 Intake Total 500 600 Output Total 100 Balance -100 500 600 Intake: Intake, IV Titration 600 Amount Sodium Chloride 0.9% 1, 600 000 ml @ 125 mls/hr IV . Q8H [facility] Rx#:[id number] Oral 500 Output: Urine 100 Other: Voiding Method Toilet Urinal # Voids 3 - Exam Patient is awake, alert, and oriented 3 Vital signs stable Good chest excursion with deep inspiration and expiration Abdomen soft nontender Dorsiflexion, plantarflexion, and extensor hallucis longus positive sustained bilaterally No signs or symptoms of DVT; no calf pain; pneumatic cuffs not currently intact bilateral lower extremities Optifoam dressings are clean, dry, and intact over the lumbar spine and right iliac crest; no erythema, purulence, or signs of infection Neurovascularly intact bilaterally lower extremities - Constitutional General appearance: Present: no acute distress - Labs CBC & Chem 7: 10/22/23 05:43 10/21/23 06:08 Labs: Abnormal Lab Results - Last 24 Hours (Table) 10/23/23 Range/Units 02:20 Urine Protein 1+ H (Negative) Urine Ketones 1+ H (Negative) Urine Blood Small H (Negative) Urine Mucus Rare H (None) /hpf Assessment and Plan (1) Radiculopathy with lower extremity symptoms Narrative/Plan: He will continue with routine post op orthopedic protocol including wound care, pain management, PT, medical management and DVT prophylaxis. Plan will be to discharge to home in the next 1-2 days Current Visit: Yes Status: Acute Priority: Medium Code(s): M54.10 - RADICULOPATHY, SITE UNSPECIFIED SNOMED Code(s): 13012126 (2) Spinal stenosis Current Visit: Yes Status: Acute Priority: Medium Code(s): M48.00 - SPINAL STENOSIS, SITE UNSPECIFIED SNOMED Code(s): 08963191 Time with Patient: Less than 30
--- NOTE | 2023-10-24 12:27 | P.PN ---
Subjective Progress Note Date: 10/24/23 patient is 63-year-old gentleman from the hospital for elective spine surgery by orthopedic spine. Patient was being seen outpatient by orthopedic spine for chronic back pain has been going on for last few years, it involves the lumbar area of spine. Patient has been complaining of increasing pain and numbness of feet patient had tried lumbar bracing and all conservative measures has so far failed. Orthopedic spine discussed with patient and he was scheduled for open posterior lumbar decompression and fusion with transforaminal lumbar interbody fusion at L2-L3, L3-L4, L4/L5. Patient underwent the procedure on 10/20. Postoperatively internal medicine team was consulted for medical management. Postoperative course was complicated by episodes of low-grade fevers. There was no complain of chest pain or shortness of breath. Patient complaining of urinary retention. 10/22. Patient seen and examined. Still having low-grade fevers. Will order chest x-ray and UA. Denies any back pain. 10/23. Patient seen and examined. Patient did spike 1 episode of fever overnight 100.9. Denies any cough. Denies any shortness of breath. Patient is using I-S. States back pain is poorly controlled with [place] 10/24. Patient seen examined. Fevers have resolved. Sitting upright in the chair. Denies any lightheadedness or dizziness. Patient has been ambulating. REVIEW OF SYSTEMS: CONSTITUTIONAL: As mentioned above CARDIOVASCULAR: No chest pain, no palpitations, no syncope. PULMONARY: No shortness of breath, no cough, GASTROINTESTINAL: No diarrhea, no nausea, no vomiting, no abdominal pain. NEUROLOGICAL: No headaches, no weakness, PHYSICAL EXAMINATION: GENERAL: The patient is alert and oriented x3, not in any acute distress. Well developed, well nourished. HEENT: Pupils are round and equally reacting to light. EOMI. No scleral icterus. No conjunctival pallor. Normocephalic, atraumatic. No pharyngeal erythema. No thyromegaly. CARDIOVASCULAR: S1 and S2 present. No murmurs, rubs, or gallops. PULMONARY: Chest is clear to auscultation, no wheezing or crackles. ABDOMEN: Soft, nontender, nondistended, normoactive bowel sounds. No palpable organomegaly. MUSCULOSKELETAL: No joint swelling or deformity. EXTREMITIES: No cyanosis, clubbing, or pedal edema. NEUROLOGICAL: Gross neurological examination did not reveal any focal deficits. SKIN: Lumbar area surgical incision seen Assessment and plan status post decompression and fusion L2-3 L3-4 L4-5 for his severe spinal stenosis with degenerative scoliosis lower extreme radiculopathy Postoperative fevers Urinary retention Hyperlipidemia Hypertension Monitor vital signs Monitor CBC Monitor CMP Continue telemetry monitoring Encourage use of I-S Continue antipyretics UA negative for infection and chest x-ray negative for pneumonia Continue pain management per orthopedics Continue DVT prophylaxis per orthopedics PT and OT following Labs and medication were reviewed.. Continue same treatment. Continue with symptomatic treatment. Resume home medication. Monitor labs and vitals. DVT and GI prophylaxis. Further recommendations as per clinical course of the patient Dictation was produced using [employer] dictation software. please excuse any grammatical, word or spelling errors. Objective - Vital Signs Vital signs: Vital Signs Temp 98.7 F 10/24/23 06:52 Pulse 70 10/24/23 06:52 Resp 17 10/24/23 06:52 BP 113/69 10/24/23 06:52 Pulse Ox 94 L 10/24/23 06:52 FiO2 Intake & Output 10/23/23 10/24/23 10/24/23 18:59 06:59 18:59 Intake Total 600 1800 Balance 600 1800 Intake: Intake, IV Titration 600 1800 Amount Sodium Chloride 0.9% 1, 600 1800 000 ml @ 125 mls/hr IV . Q8H [facility] Rx#:[id number] - Labs CBC & Chem 7: 10/22/23 05:43 10/21/23 06:08 Labs: Abnormal Lab Results - Last 24 Hours (Table) 10/23/23 Range/Units 10:45 Procalcitonin 0.70 H (0.02-0.09) ng/mL
--- NOTE | 2023-10-24 13:56 | P.PN ---
Subjective Progress Note Date: 10/24/23 Principal diagnosis: S/P L2-L5 decompression and Fusion Patient is a pleasant 63-year-old male who is seen and examined at the bedside following posterior lateral decompression and fusion performed Wednesday, POD#4. Patient states he is doing a little better today. The [place] pain meds were causing him agitation and therefore was changed to Percocet. Currently does not complain of nausea, vomiting, fever, or chills. Patient is eating and voiding freely without difficulty. He denies new numbness, tingling, weakness, calf pain or other. He has had difficulty with mobilization but improving. He is still planning for discharge to home ([place]) in the next 1 to 2 days depending on his increased mobility. Objective - Vital Signs Vital signs: Vital Signs Temp 98.7 F 10/24/23 06:52 Pulse 70 10/24/23 06:52 Resp 17 10/24/23 06:52 BP 113/69 10/24/23 06:52 Pulse Ox 94 L 10/24/23 06:52 FiO2 Intake & Output 10/23/23 10/24/23 10/24/23 18:59 06:59 18:59 Intake Total 600 1800 Balance 600 1800 Intake: Intake, IV Titration 600 1800 Amount Sodium Chloride 0.9% 1, 600 1800 000 ml @ 125 mls/hr IV . Q8H [facility] Rx#:[id number] - Exam Patient is awake, alert, and oriented 3 Vital signs stable Good chest excursion with deep inspiration and expiration Abdomen soft nontender Dorsiflexion, plantarflexion, and extensor hallucis longus positive sustained bilaterally No signs or symptoms of DVT; no calf pain; pneumatic cuffs not currently intact bilateral lower extremities Optifoam dressings are clean, dry, and intact over the lumbar spine and right iliac crest; no erythema, purulence, or signs of infection Neurovascularly intact bilaterally lower extremities - Constitutional General appearance: Present: no acute distress - Labs CBC & Chem 7: 10/22/23 05:43 10/21/23 06:08 Labs: Abnormal Lab Results - Last 24 Hours (Table) 10/23/23 Range/Units 10:45 Procalcitonin 0.70 H (0.02-0.09) ng/mL Assessment and Plan (1) Radiculopathy with lower extremity symptoms Narrative/Plan: He will continue with routine post op orthopedic protocol including wound care, pain management, PT, medical management and DVT prophylaxis. Percocet 7.5 was added to his oral pain medicine regiment. Plan will be to discharge to home ([place]) in the next 1-2 days Current Visit: Yes Status: Acute Priority: Medium Code(s): M54.10 - RAD ICULOPATHY, SITE UNSPECIFIED SNOMED Code(s): 14559801 (2) Spinal stenosis Current Visit: Yes Status: Acute Priority: Medium Code(s): M48.00 - SPINAL STENOSIS, SITE UNSPECIFIED SNOMED Code(s): 69130987 Time with Patient: Less than 30
[2023-10-24] MEDS: oxyCODONE-APAP 7.5-325MG 1 EACH TAB PO PRN (16:58)
[2023-10-25 08:43] VITALS: BP 128/74; PULSE 84; RESP 18; TEMP 99.4
--- NOTE | 2023-10-25 09:51 | P.DS ---
Providers Date of admission: 10/20/23 05:57 Attending physician: Pawan Kim Consults: 10/20/23 13:21 Consult Physician Routine Consulting Provider: Elda Taylor Consult Reason/Comments: Medical managementMedical management Do you want consulting provider notified?: Yes Primary care physician: Stated None Hospital Course: The patient presented on the day of admission as per their operative note. He underwent minimally invasive decompression fusion L2-L5 for his severe spinal stenosis with degenerative scoliosis and recurrent stenosis. He has been making steady progress postoperatively since his operation. He is voiding freely. He has had a bowel movement. He is tolerating his diet well. He is up and ambulatory around the nurses station. His pains been controlled initially with IV medications and is now controlling well with oral Percocet. He was not able to tolerate the [place] as it made him quite agitated but he is tolerating Percocet well Physical Exam The incision site is clean dry and intact. There is no erythema no drainage. There is no purulence no evidence of infection. Area is clear. There is minimal inflammation. There is no erythema there is no drainage he has good sustained dorsiflexion plantarflexion EHL. His calves thighs are soft nontender Abdomen soft and nontender. Chest has good excursion with deep inspiration and expiration. The patient has active and passive range of motion intact at the upper and lower extremities. There is no acute change in neurologic status. Hospital Course Postoperative day #5 status post minimally invasive decompression fusion L2-3 L3-4 L4-5 for his degenerative scoliosis with severe spinal stenosis and recurrent stenosis with lower extremity radiculopathy and neurogenic claudication The patient has been making good progress postoperatively. They have completed the prophylactic antibiotics without any signs or symptoms of infection. The patient has been able to advance their diet, and is tolerating diet adequately. The pain was initially controlled with IV medications and is now controlled appropriately with oral medications. The patient has been able to increase their mobilization. The patient has progressed appropriately. I think they are in good stable condition for discharge today. They will be sent home with appropriate prescriptions. The long drive home back to [place] which is more than 3 and half hours but he has family with him and they feel that they are comfortable to head back to [place] today. I think that is appropriate I just discussed with him the nature of the spasm and the issues involved but I think that he is safe to do so. I answered their questions to the best of my ability in a language that they can understand and they are agreeable with the plan. They will follow up as directed. Will likely do his initial visits remotely through telehealth with follow-up x-rays at his local area that I will review with them. They initially picked up the [place] pain med prescription on Wednesday here at the hospital as the hospital pharmacy is closed on the weekends. We are anticipating potential discharge over the weekend. We have changed his oral medication to Percocet. We will give him a new prescription for this. He will need to fill the Percocet here in the hospital before he leaves for his home [facility] today Patient Condition at Discharge: Good Plan - Discharge Summary Discharge Rx Participant: Yes New Discharge Prescriptions: New traMADol HCl [Ultram] 50 mg PO Q4HR PRN #42 tab PRN Reason: Pain Cyclobenzaprine [Flexeril] 10 mg PO TID PRN #60 tab PRN Reason: Spasms HYDROcodone/APAP 5-325MG [[place] 5-325] 1 tab PO Q4HR PRN #42 tab PRN Reason: Pain Sennosides-Docusate Sodium [Senokot-S] 1 tab PO BID PRN #60 tablet PRN Reason: Constipation oxyCODONE HCL/ACETAMINOPHEN [Percocet 5-325 mg] 1 - 2 tab PO Q4HR PRN 7 Days #56 tab PRN Reason: Pain No Action Celecoxib [CeleBREX] 100 mg PO BID PRN PRN Reason: Pain icosapent ethyL [Icosapent Ethyl] 1 gm PO BID Metoprolol Tartrate [Lopressor] 50 mg PO BID Valsartan 320 mg PO DAILY traMADol HCL 50 mg PO DIRECTED PRN PRN Reason: Pain Ezetimibe [Zetia] 10 mg PO DAILY Discharge Medication List Celecoxib [CeleBREX] 100 mg PO BID PRN 10/14/23 [History] Ezetimibe [Zetia] 10 mg PO DAILY 10/14/23 [History] Metoprolol Tartrate [Lopressor] 50 mg PO BID 10/14/23 [History] Valsartan 320 mg PO DAILY 10/14/23 [History] icosapent ethyL [Icosapent Ethyl] 1 gm PO BID 10/14/23 [History] traMADol HCL 50 mg PO DIRECTED PRN 10/14/23 [History] Cyclobenzaprine [Flexeril] 10 mg PO TID PRN #60 tab 10/21/23 [Rx] HYDROcodone/APAP 5-325MG [[place] 5-325] 1 tab PO Q4HR PRN #42 tab 10/21/23 [Rx] traMADol HCl [Ultram] 50 mg PO Q4HR PRN #42 tab 10/21/23 [Rx] Sennosides-Docusate Sodium [Senokot-S] 1 tab PO BID PRN #60 tablet 10/22/23 [Rx] oxyCODONE HCL/ACETAMINOPHEN [Percocet 5-325 mg] 1 - 2 tab PO Q4HR PRN 7 Days #56 tab 10/25/23 [Rx] Follow up Appointment(s)/Referral(s): Pawan Kim DO [Doctor of Osteopathic Medicine] - 1 Week (Patient may follow-up with Molina Pereyra PA-C or Dr. Kurtis Kim at [facility] in 1-2 weeks following discharge. Has a scheduled appointment, but we discussed the follow-up as he lives in [place]. Will plan a telehealth with a prescription for further imaging ) Activity/Diet/Wound Care/Special Instructions: 1. Patient may shower with Optifoam dressing intact. 2. Patient may remove Optifoam dressing in 3 days and shower without a dressing at that time. 3. Patient should refrain from driving until at least after their first follow- up appointment in the office. 4. Patient should avoid excessive bending, twisting, lifting; avoid overhead lifting; no lifting greater than 10 pounds 5. Take medications as prescribed 6. Patient is encouraged to utilize walker to aid in ambulation as needed 7. Patient should avoid anti-inflammatory medications over the next 6 weeks postoperatively 8. Do not soak in tub Discharge Disposition: HOME SELF-CARE
[2023-10-25] MEDS: oxyCODONE-APAP 7.5-325MG 1 EACH TAB PO PRN (10:14)
--- NOTE | 2023-10-25 10:55 | P.PN ---
Subjective Progress Note Date: 10/25/23 63-year-old gentleman from the hospital for elective spine surgery by orthopedic spine. Patient was being seen outpatient by orthopedic spine for chronic back pain has been going on for last few years, it involves the lumbar area of spine. Patient has been complaining of increasing pain and numbness of feet patient had tried lumbar bracing and all conservative measures has so far failed. Orthopedic spine discussed with patient and he was scheduled for open posterior lumbar decompression and fusion with transforaminal lumbar interbody fusion at L2-L3, L3-L4, L4/L5. Patient underwent the procedure on 10/20. Postoperatively internal medicine team was consulted for medical management. Postoperative course was complicated by episodes of low-grade fevers. There was no complain of chest pain or shortness of breath. Patient complaining of urinary retention. 10/22. Patient seen and examined. Still having low-grade fevers. Will order chest x-ray and UA. Denies any back pain. 10/23. Patient seen and examined. Patient did spike 1 episode of fever overnight 100.9. Denies any cough. Denies any shortness of breath. Patient is using I-S. States back pain is poorly controlled with [place] 10/24. Patient seen examined. Fevers have resolved. Sitting upright in the chair. Denies any lightheadedness or dizziness. Patient has been ambulating. 10/25: Patient seen and evaluated bedside, patient's back pain has resolved, clinically appears nontoxic, cleared for discharge. Prescription provided by surgical team , PHYSICAL EXAMINATION: GENERAL: The patient is alert and oriented x3, not in any acute distress. Well developed, well nourished. HEENT: Pupils are round and equally reacting to light. EOMI. CARDIOVASCULAR: S1 and S2 present. No murmurs, rubs, or gallops. PULMONARY: Chest is clear to auscultation, no wheezing or crackles. ABDOMEN: Soft, nontender, nondistended, normoactive bowel sounds. No palpable organomegaly. MUSCULOSKELETAL: No joint swelling or deformity. EXTREMITIES: No cyanosis, clubbing, or pedal edema. NEUROLOGICAL: Gross neurological examination did not reveal any focal deficits. SKIN: Lumbar area surgical incision seen Objective - Vital Signs Vital signs: Vital Signs Temp 99.4 F 10/25/23 07:43 Pulse 84 10/25/23 07:43 Resp 18 10/25/23 07:43 BP 128/74 10/25/23 07:43 Pulse Ox 96 10/25/23 07:43 FiO2 Intake & Output 10/24/23 10/25/23 10/25/23 18:59 06:59 18:59 Intake Total 1800 240 Balance 1800 240 Intake: Intake, IV Titration 1800 Amount Sodium Chloride 0.9% 1, 1800 000 ml @ 125 mls/hr IV . Q8H BERNIE Rx#:[id number] Oral 240 Other: Voiding Method Toilet Toilet Urinal # Voids 3 - Labs CBC & Chem 7: 10/22/23 05:43 10/21/23 06:08 Assessment and Plan Assessment: Assessment and plan status post decompression and fusion L2-3 L3-4 L4-5 for his severe spinal stenosis with degenerative scoliosis lower extreme radiculopathy Postoperative fevers RESOLVED Urinary retention RESOLVED Hyperlipidemia Hypertension Encourage use of I-S UA negative for infection and chest x-ray negative for pneumonia Continue pain management per orthopedics Continue DVT prophylaxis per orthopedics
--- NOTE | 2023-10-27 12:16 | CDI ---
Documentation Clarification Form Date: 10/27/2023 11:43:09 AM From: Elsa Carson RN, CCDS Email: [email or web address] Admit Date: 10/20/2023 05:57:00 AM Patient Name: Vahe Mittal Visit Number: [id number] Discharge Date: 10/25/2023 11:51:00 AM ATTENTION: The Clinical Documentation Specialists (CDI) and [facility] Coding Staff appreciate your assistance in clarifying documentation. Please respond to the clarification below the line at the bottom and electronically sign. The CDI & [facility] Coding staff will review the response and follow-up if needed. Please note: Queries are made part of the Legal Health Record. If you have any questions, please contact the author of this message via ITS. Dr. Anurag Biggs The patient had a drop in hemoglobin/hematocrit level from baseline. Please clarify if there is an additional diagnosis and/or clinical significance related to these lab values. History/Risk Factors: Presented for elective spine surgery for chronic back pain, spinal stenosis, lower extremity radiculopathy and DJD. S/P lumbar fusion with approximately 600mL EBL. Clinical indicators: 10/20 Procedure note: estimated blood loss: approximately 600 mL 10/20 Hgb 13.8; Hct 39.2 10/20 Hgb 12.6; Hct 35.3 10/21 Hgb 11.0; Hct 33.4 10/22 Hgb 10.6; Hct 32.8 Treatment: Monitor daily CBC 10/20-10/22; Albumin x1 postop on 10/20 Is there an additional diagnosis and/or clinical significance related to the above lab result/information: [ x ] Acute blood loss anemia [ ] No additional diagnosis/Not clinically significant [ ] Unable to determine [ ] Other, please specify MTDD
== END 2023-10-25 11:51 | disposition home or self-care (01) | DRG 454 ==
LOC: OR 05:56 → OBSVTOIN 05:57 → 4SSUR 05:57 → OR 05:57 → 4SSUR 14:03
PROVIDERS: ADMIT Orthopaedic Surgery Orthopaedic Surgery of the Spine; ATTEND Orthopaedic Surgery Orthopaedic Surgery of the Spine
PROC: 0SG1071 Fusion of 2 or more Lumbar Vertebral Joints with Autologous Tissue Substitute, Posterior Approach, Posterior Column, Open Approach (ICD-10-PCS; 2023-10-20)
PROC: 01NB0ZZ Release Lumbar Nerve, Open Approach (ICD-10-PCS; 2023-10-20)
PROC: 0ST20ZZ Resection of Lumbar Vertebral Disc, Open Approach (ICD-10-PCS; 2023-10-20)
PROC: 0QU00JZ Supplement Lumbar Vertebra with Synthetic Substitute, Open Approach (ICD-10-PCS; 2023-10-20)
PROC: 07DS3ZZ Extraction of Vertebral Bone Marrow, Percutaneous Approach (ICD-10-PCS; 2023-10-20)
PROC: 30233J1 Transfusion of Nonautologous Serum Albumin into Peripheral Vein, Percutaneous Approach (ICD-10-PCS; 2023-10-20)
PROC: 0SG10AJ Fusion of 2 or more Lumbar Vertebral Joints with Interbody Fusion Device, Posterior Approach, Anterior Column, Open Approach (ICD-10-PCS; principal; 2023-10-20 07:30)
DX: M51.16 Intervertebral disc disorders with radiculopathy, lumbar region (principal); D62 Acute posthemorrhagic anemia; M41.56 Other secondary scoliosis, lumbar region; I10 Essential (primary) hypertension; M48.062 Spinal stenosis, lumbar region with neurogenic claudication; M47.26 Other spondylosis with radiculopathy, lumbar region; G89.29 Other chronic pain; R50.9 Fever, unspecified; R33.9 Retention of urine, unspecified; I25.10 Atherosclerotic heart disease of native coronary artery without angina pectoris; E78.1 Pure hyperglyceridemia; F17.220 Nicotine dependence, chewing tobacco, uncomplicated; Z79.1 Long term (current) use of non-steroidal anti-inflammatories (NSAID); Z79.899 Other long term (current) drug therapy; Z88.8 Allergy status to other drugs, medicaments and biological substances
CPT/HCPCS: 71046; 72100; 80048; 81001; 84145; 85025; 86891